=== PATIENT | male | born 1960 | race Caucasian/White ===

== ENCOUNTER 2021-12-10 12:45 | Outpatient (CLI) | payer BC, SELFPAY ==
--- NOTE | 2021-12-10 13:00 | MR_ITS ---
[address] [address] Phone:?[phone] Fax:?[phone] Referring Physician Information: Ethan Altamirano M.D. [id number] [facility] [address] Phone:?[phone] Fax:?[phone] Patient:Candy English D.O.B:?1960 Sex:?Male Phone:?[phone] [facility] MRN:?[id number] Exam Date:?12/10/2021 ? EXAM: MRI EXAMINATION OF THE LEFT HIP CLINICAL INFORMATION: Left hip pain. No specific injury. No history of surgery to this area. TECHNICAL INFORMATION: Large [id number] coronal T1 and STIR images were obtained. Thin section coronal and sagittal proton density and T2-weighted spin echo sequences were obtained through the left hip followed by oblique axial proton density and axial fat saturation proton density images. There are no prior studies available for comparison. INTERPRETATION: Hip joint: There is a tiny left hip joint effusion. Mild to moderate subchondral edema signal and cystic change involves the anterosuperior acetabulum. Minimal subchondral edema signal involves the acetabular roof. No discrete lesion identified to indicate AVN. No evidence of marrow edema pattern to indicate fracture or stress reaction of the femoral neck. There is a 2.7 cm AP by a maximum of 1.7 cm mediolateral segment of grade 3 and IV chondromalacia involving the superior, anterosuperior and superior posterior aspects of the hip joint. No evidence for a tear involving the superior aspect of the labrum. Series 6 images 16 through 18 demonstrate a 1 cm segment of tearing involving the anterosuperior labrum extending cranially from the anterior mid equator portion. The gluteus tendon insertions onto the greater trochanter are intact without tear or significant tendinopathy. No evidence of fluid signal abnormality to indicate trochanteric bursitis. Intact appearance of the iliopsoas muscle and tendon insertions. No evidence for iliopsoas bursitis. Bones and joints: No evidence for an occult fracture/stress reaction involving the sacrum. There are mild changes of bilateral SI joint arthrosis. Mild pubic symphysis arthrosis without adjacent reactive marrow edema signal. There is no evidence for a fracture. No abnormal marrow edema pattern to indicate occult stress reaction or stress fracture. Musculotendinous structures: No evidence of acute musculotendinous injury. Specifically, no evidence of acute muscle tear, hematoma or other edema pattern. Intrapelvic contents: No free fluid seen within the pelvis. No discrete intrapelvic mass is identified. There is a small left-sided inguinal hernia, filled only with fat. Neurovascular structures: No discrete cyst, mass or other compression upon the portions visualized of sciatic or femoral nerves. CONCLUSION: 1. Left hip joint osteoarthritis. This includes a large segment of grade III and IV chondromalacia involving the superior, anterosuperior and superior posterior aspects of the hip joint. Mild to moderate subchondral edema signal and cystic change. 2. Approximate 1 cm segment of tearing involving the anterosuperior labrum, extending cranially from the anterior mid equator portion. 3. No evidence for bursitis about the hip. 4. No evidence for an occult fracture/stress reaction. No evidence for AVN. 5. Mild bilateral SI joint arthrosis. Mild pubic symphysis arthrosis. KES Electronically signed on 12/10/2021 2:49:00 PM by Yuan Morales M.D.
== END 2021-12-10 12:46 | disposition home or self-care (01) ==
PROVIDERS: Visit Provider Orthopaedic Surgery Sports Medicine
DX: M25.552 Pain in left hip (principal); M16.12 Unilateral primary osteoarthritis, left hip
CPT/HCPCS: 73721

== ENCOUNTER 2022-01-03 16:00 | Outpatient (CLI) | payer BC, SELFPAY ==
[2022-01-03 22:08] LABS: Albumin* 4.9 g/dL (3.3-5.0); Chloride* 99 mmol/L (96-114)
[2022-01-03 22:09] LABS: Potassium* 4.2 mmol/L (3.6-5.1); Sodium* 139 mmol/L (135-149)
[2022-01-03 22:11] LABS: Aspartate Amino Transferase* 43 U/L (12-35); Bilirubin Total* 0.9 mg/dL (0.1-1.5); Blood Urea Nitrogen* 20 mg/dL (7-30); Carbon Dioxide* 32 mmol/L (20-32); Cholesterol* 190 mg/dL (90-199); Creatinine* 0.8 mg/dL (0.5-1.5); Estimated Glomerular Filt Rate 101 ml/min; Glucose* 85 mg/dL (60-115); Total Protein* 7.8 g/dL (6.0-8.3)
[2022-01-03 22:12] LABS: Alanine Aminotransferase* 41 U/L (4-50); Alkaline Phosphatase* 74 U/L (40-150); Calcium* 10.1 mg/dL (8.4-10.6); HDL Cholesterol* 53 mg/dL (>=40); LDL Cholesterol Calculated 116 mg/dL (<100); Triglycerides* 106 mg/dL (40-149)
[2022-01-03 23:25] LABS: PSA Diagnostic* < 0.06 ng/mL (0.10-4.00)
[2022-01-03 23:39] LABS: Hepatitis C Virus Antibody* Negative (Negative)
== END 2022-01-03 16:01 | disposition home or self-care (01) ==
PROVIDERS: PCP Family Medicine; Visit Provider Family Medicine
DX: Z00.00 Encounter for general adult medical examination without abnormal findings (principal); I10 Essential (primary) hypertension; C61 Malignant neoplasm of prostate; Z13.6 Encounter for screening for cardiovascular disorders; Z12.5 Encounter for screening for malignant neoplasm of prostate; Z11.59 Encounter for screening for other viral diseases
CPT/HCPCS: 80053; 80061; 84153; 86803

== ENCOUNTER 2022-07-02 12:11 | Outpatient (CLI) | payer BC, SELFPAY | END 2022-07-02 12:12 | disposition home or self-care (01) | PROVIDERS: PCP Family Medicine; Visit Provider Emergency Medicine | DX: R10.9 Unspecified abdominal pain (principal); E78.5 Hyperlipidemia, unspecified; I10 Essential (primary) hypertension | CPT/HCPCS: 80076; 83690; 87338 ==

== ENCOUNTER 2022-07-03 16:41 | Outpatient (CLI) | payer BC, SELFPAY | END 2022-07-03 16:42 | disposition home or self-care (01) | LOC: NFLDREF 07-04 06:22 | PROVIDERS: PCP Family Medicine; Referring Provider Family Medicine; Visit Provider Emergency Medicine | DX: R10.9 Unspecified abdominal pain (principal) | CPT/HCPCS: 87338 ==

== ENCOUNTER 2022-07-09 07:07 | Outpatient (CLI) | payer BC, SELFPAY ==
--- NOTE | 2022-07-09 07:15 | CRLHL7_ITS ---
For Patients: As a result of the Century Cures Act, medical imaging exams and procedure reports are released immediately into your electronic medical record. You may view this report before your referring provider. If you have questions, please contact your health care provider. INDICATION: Epigastric abdominal pain COMPARISON: none TECHNIQUE: Real time kaur scale imaging and color Doppler analysis was performed of the right upper quadrant. FINDINGS: The examination is limited by excessive bowel gas. The pancreas is not well visualized nor is the liver. The proximal aorta measures 2.0 cm. The visualized portions of the liver do appear normal. The right kidney is unremarkable and measures 10.4 cm. The common bile duct measures 6 millimeters. The gallbladder is nondistended. IMPRESSION: Limited abdominal ultrasound due to overlying bowel gas. The gallbladder is contracted. If the patient was truly NPO then this would be abnormal suggesting chronic cholecystitis. Dictated by Sawyer Nicole MD @ 07/09/2022 9:19:48 AM (Electronically Signed)
== END 2022-07-09 07:08 | disposition home or self-care (01) ==
PROVIDERS: PCP Family Medicine; Visit Provider Emergency Medicine
DX: R10.13 Epigastric pain (principal)
CPT/HCPCS: 76705

== ENCOUNTER 2023-06-03 07:16 | Outpatient (CLI) | payer OTHER, SELFPAY | END 2023-06-03 07:17 | disposition home or self-care (01) | PROVIDERS: PCP Family Medicine; Visit Provider Family Medicine | DX: Z00.00 Encounter for general adult medical examination without abnormal findings (principal); E78.5 Hyperlipidemia, unspecified; I10 Essential (primary) hypertension; Z13.1 Encounter for screening for diabetes mellitus; Z12.5 Encounter for screening for malignant neoplasm of prostate | CPT/HCPCS: 80053; 80061; 82043; 82570; G0103 ==